=== PATIENT | female | born 1960 | race Caucasian/White ===

== ENCOUNTER → 2016-12-28 | Outpatient (CLI) | payer OTHER ==
[~2016-12-28] MED LIST: BUDE10.22 IH; GBPN100C PO; NOVLOG; ONDAN4ODT PO; ONDN4T PO; PNT40TEC PO; TRAM50TA2 PO
--- NOTE | 2016-12-28 14:01 | Diagnostic Imaging Report ---
Ultrasound of the neck. INDICATION: Lump above the left clavicle. FINDINGS: The lump appears to correspond to the 1.0 x 0.6 x 0.5-cm lymph node in the supraclavicular region on the left side with preserved fatty hilum in favor of benign etiology. IMPRESSION: The palpable lump is a 1-cm benign-appearing left supraclavicular lymph node. Clinical followup is recommended. Dictated by: Dictated on workstation # [id number]
== END ==
LOC: RAD 11:10
DX: R59.0 Localized enlarged lymph nodes (principal)
CPT/HCPCS: 76536

== ENCOUNTER 2017-01-13 08:13 | Outpatient (CLI) | payer OTHER ==
[~2017-01-13] VITALS: Ht 154.9 cm; Wt 96.9 kg
[2017-01-13] MEDS ORDERED: MULT-35 PO (08:39)
[2017-01-13] MEDS ORDERED: BUDE10.2 IH (08:39)
[2017-01-13] MEDS ORDERED: MINO100C2 PO (08:39)
[2017-01-13] MEDS ORDERED: HYDR25TA4 PO (08:39)
[2017-01-13] MEDS ORDERED: METF1000 PO (08:39)
[2017-01-13] MEDS ORDERED: [UNRECOGNIZED DRUG - OTHER] PO (08:39)
[2017-01-13] MEDS ORDERED: INSU300I SQ (08:39)
[2017-01-13] MEDS ORDERED: ALBU90AE IH (08:39)
[2017-01-13] MEDS ORDERED: SIMV40TA4 PO (08:39)
[2017-01-13 08:46] VITALS: BP 124/59
== END 2017-01-13 09:51 | disposition home or self-care (01) ==
LOC: PREOP 08:13
PROVIDERS: ATTEND Surgery
DX: Z01.818 Encounter for other preprocedural examination (principal); R59.0 Localized enlarged lymph nodes
CPT/HCPCS: 87081

== ENCOUNTER → 2017-05-28 | Outpatient (CLI) | payer BC, OTHER ==
[~2017-05-28] MED LIST changes: +ACHD5005 PO; +ALBU90AE IH; +BUDE10.2 IH; +HYDR25TA4 PO; +INSU300I SQ; +METF1000 PO; +MINO100C2 PO; +MULT-35 PO; +SIMV40TA4 PO; +[UNRECOGNIZED DRUG - OTHER] PO
--- NOTE | 2017-05-28 13:08 | Diagnostic Imaging Report ---
INDICATION: [id number] history of smoking. COMPARISON: None. TECHNIQUE: Routine noncontrast low-dose CT of the chest was performed for lung screening purposes. FINDINGS: Evaluation of the lung sandra demonstrates no focal consolidation, pleural effusion, nor pneumothorax. No suspicious pulmonary nodules or masses are identified. Cardiomediastinal structures are somewhat suboptimally evaluated given low-dose noncontrast technique, but heart size is within normal limits. There is no large pericardial effusion. There is mild calcified aortic and coronary atherosclerosis. No pathologically enlarged or morphologically abnormal adenopathy is seen within the mediastinum, rupinder, nor axilla. Bony structures show age-related degenerative changes. No lytic or blastic bony lesions are seen. Included portions of the upper abdomen are grossly unremarkable. IMPRESSION: 1. No suspicious pulmonary nodule or mass. Continued annual screening with low-dose CT chest is recommended. 2. No other acute cardiopulmonary process. 3. Mild calcified aortic and coronary atherosclerosis. Lung rads 1: Negative exam. No lung nodules. Continue annual screening with LDCT in 12 months. Other significant findings: Mild calcified aortic and coronary atherosclerosis. Dictated by: Dictated on workstation # [id number]
== END ==
LOC: RAD 09:03
PROVIDERS: ATTEND Nurse Practitioner Family
DX: Z13.89 Encounter for screening for other disorder (principal); I70.0 Atherosclerosis of aorta; I25.10 Atherosclerotic heart disease of native coronary artery without angina pectoris; J44.9 Chronic obstructive pulmonary disease, unspecified; Z87.891 Personal history of nicotine dependence